=== PATIENT | male | born 1965 | race Caucasian/White ===

== ENCOUNTER 2016-08-04 08:18 | Inpatient (IN) | payer OTHER ==
[~2016-08-04] VITALS: Ht 172.7 cm; Wt 88.9 kg
[2016-08-04] VITALS (7 sets, daily range): BP systolic 114–149; BP diastolic 60–90
--- NOTE | ~2016-08-04 | ST ---
[place], [place] EXERCISE STRESS TEST REPORT NAME: BETY LEZAMA UNIT #: [id number] ROOM: 408 DOCTOR: IVAN REID MD BIRTHDATE: [birth year] DOS: 08/05/2016 EXERCISE STRESS TEST INDICATIONS: Chest discomfort, midsternal chest pain. PROCEDURE: The patient walked on a full Bety protocol for 5 minutes 20 seconds. At that point, he became very fatigued and dyspneic. The speed of the belt was decreased to 1.5 miles per hour and he walked an additional minute before the conclusion of the test. He achieved a maximum heart rate of 149, which represented 88% of his maximum predicted heart rate at a workload of 7 mets. He had dyspnea, but no chest discomfort. The resting and stress electrocardiograms were normal. One minute prior to completion of the exercise protocol, he was given radionuclide intravenously. Chapman treadmill score was 6 consistent with a low risk for cardiac events. IMPRESSION: 1. Somewhat limited exercise capacity, but without chest pain or diagnostic electrocardiographic changes. 2. Radionuclide administered. Please see the separate myocardial perfusion imaging report for further details of the patient's stress test results. IVAN REID MD CM:STRESS:EXERCISE STRESS TEST REPORT [id number] IVAN REID MD
--- NOTE | ~2016-08-04 | PR ---
[place], [place] PROGRESS NOTE NAME: BETY LEZAMA UNIT #: [id number] ROOM: 408 DOCTOR: IVAN REID MD BIRTHDATE: [birth year] DOS: CARDIOLOGY PROGRESS NOTE SUBJECTIVE: The patient was seen in the Cardiology Department just prior to a stress test today on 08/05/2016. He is a 50-year-old man, who has a history of a stroke in the past. This occurred in 09/2014. He presented to the hospital on this occasion with a sharp left precordial chest pain that occurred at rest and was very severe. The pain waxed and waned, but did not resolve spontaneously and therefore came to the emergency room. Since he has been in the hospital, he still does have some sensation of the pain. He did not have any diagnostic electrocardiographic changes or elevation in cardiac biomarkers. Overnight, his pains have persisted. They are not as serious as they were prior to admission. OBJECTIVE: VITAL SIGNS: On exam today, his pulse is 60 and regular, blood pressure 118/84. NECK: Supple. He has no jugular distention. His carotids are full without bruits. He has no neck or supraclavicular masses. LUNGS: Respirations are unlabored. His chest is clear to auscultation and percussion. He has no presacral edema or chest wall tenderness. HEART: Has a regular rhythm. He has a fourth heart sound, but no third heart sound. ABDOMEN: Soft. EXTREMITIES: Showed no edema. Her electrocardiogram today showed sinus rhythm and was a normal tracing. IMPRESSION: 1. Atypical chest pain, myocardial infarction has been ruled out. 2. History of stroke in 2014. Etiology never determined. 3. Long-term and ongoing cigarette abuse. 4. History of hypertension. PLAN: The patient will undergo an exercise myocardial perfusion study. Further recommendations will depend upon the results of the stress test. [place], [place] PROGRESS NOTE NAME: BETY LEZAMA UNIT #: [id number] ROOM: 408 DOCTOR: IVAN REID MD BIRTHDATE: [birth year] IVAN REID MD CM:PNTRANS [id number] IVAN REID MD 08/05/16 2320 interface
[~2016-08-04 08:18] MED LIST: AMOXICILLIN500 MG PO; ASPIRIN325 M2 PO; ATARAX,VISTARIL50 MG PO; ATARAX25 MG PO; BACTRIM DS 8001 TA1 PO; CEPHALEXIN500 M1 PO; DOXYCYCLINE HY100 M3 PO; KEFTAB500 MG PO; KENALOG0.1% TP; ZANTAC150 MG PO
[2016-08-04 08:44] LABS: BASO # 0.2 10*3/uL (0.0-0.1); BASO % 1.5 % (0.0-1.0); EOS # 0.4 10*3/uL (0.0-0.4); EOS % 3.2 % (1.0-4.0); HEMATOCRIT 46.5 % (42.0-52.0); LYMPH # 3.4 10*3/uL (1.3-4.4); LYMPH % 30.7 % (27.0-41.0); MEAN CELL VOLUME 90.8 fl (80.0-94.0); MEAN CORPUSCULAR HGB 31.3 pg (27.0-31.0); MEAN CORPUSCULAR HGB CONC 34.4 g/dl (33.0-37.0); MEAN PLATELET VOLUME 9.1 fl (9.6-12.3); MONO # 0.9 10*3/uL (0.1-1.0); MONO % 7.8 % (3.0-9.0); NEUT # 6.3 10*3/uL (2.3-7.9); NEUT % 56.6 % (47.0-73.0); PLATELET COUNT AUTOMATED 272 10*3/uL (130-400); RED BLOOD COUNT 5.12 10*6/uL (4.50-5.90); RED CELL DISTRI WIDTH 13.1 % (0-14.5); WHITE BLOOD COUNT 11.1 10*3/uL (4.8-10.8)
[2016-08-04 08:53] LABS: PROTHROMBIN TIME 10.4 SECONDS (9.0-12.4)
[2016-08-04 08:56] LABS: BUN 14 mg/dl (7-24); CARBON DIOXIDE 25 mmol/L (21-32); CHLORIDE 108 mmol/L (98-107); EST GLOM FILT AFRICAN AMERICAN > 60 ml/min; GLUCOSE 121 mg/dL (65-99); MAGNESIUM 2.3 mg/dL (1.5-2.1); POTASSIUM 4.1 mmol/L (3.5-5.1); SODIUM 140 mmol/L (136-145)
[2016-08-04 12:32] LABS: CKMB 1.2 ng/ml (0.5-3.6)
[2016-08-04 18:28] LABS: CKMB 0.6 ng/ml (0.5-3.6)
[2016-08-05] VITALS: BP 103/59
[2016-08-05 01:25] LABS: CPK 157 U/L (39-308)
[2016-08-05 01:26] LABS: CKMB < 0.5 ng/ml (0.5-3.6)
[2016-08-05 06:25] LABS: BASO # 0.2 10*3/uL (0.0-0.1); BASO % 1.7 % (0.0-1.0); EOS # 0.5 10*3/uL (0.0-0.4); EOS % 4.6 % (1.0-4.0); HEMATOCRIT 44.6 % (42.0-52.0); HEMOGLOBIN 15.3 g/dl (14.0-18.0); LYMPH # 3.2 10*3/uL (1.3-4.4); LYMPH % 32.4 % (27.0-41.0); MEAN CELL VOLUME 92.3 fl (80.0-94.0); MEAN CORPUSCULAR HGB 31.7 pg (27.0-31.0); MEAN CORPUSCULAR HGB CONC 34.3 g/dl (33.0-37.0); MEAN PLATELET VOLUME 9.7 fl (9.6-12.3); MONO % 10.4 % (3.0-9.0); NEUT % 50.6 % (47.0-73.0); PLATELET COUNT AUTOMATED 237 10*3/uL (130-400); RED BLOOD COUNT 4.83 10*6/uL (4.50-5.90); RED CELL DISTRI WIDTH 13.1 % (0-14.5)
[2016-08-05 06:45] LABS: HEMOGLOBIN A1c 5.1 % (4.8-5.6)
[2016-08-05 07:00] LABS: MAGNESIUM 2.3 mg/dL (1.5-2.1)
[2016-08-05 07:07] LABS: ALBUMIN 3.2 gm/dl (3.1-4.5); ALKALINE PHOSPHATASE 61 U/L (45-117); BILIRUBIN, TOTAL 0.2 mg/dl (0.2-1.0); BUN 15 mg/dl (7-24); CARBON DIOXIDE 25 mmol/L (21-32); CHLORIDE 107 mmol/L (98-107); EST GLOM FILT AFRICAN AMERICAN > 60 ml/min; GLUCOSE 107 mg/dL (65-99); POTASSIUM 4.1 mmol/L (3.5-5.1); SGOT/AST 19 IU/L (3-35); SGPT/ALT 27 U/L (12-78); SODIUM 139 mmol/L (136-145); TOTAL PROTEIN 7.4 gm/dL (6.4-8.2)
[2016-08-05 07:22] LABS: PROTHROMBIN TIME 10.2 SECONDS (9.0-12.4)
[2016-08-05 08:00] VITALS: BP 112/70
[2016-08-05 12:00] VITALS: BP 116/78
[2016-08-05 15:40] VITALS: BP 115/62
[2016-08-05] MEDS ORDERED: ASPIRIN ADULT L81 M2 PO (18:15)
[2016-08-05] MEDS ORDERED: ATORVASTATIN CA80 M1 PO (18:15)
== END 2016-08-05 18:46 | disposition home or self-care (01) | DRG 392 ==
LOC: ED 08:18 → EDHOLD 09:08 → 4E 10:02
PROVIDERS: Emergency Medicine; Family Medicine
DX: K21.9 Gastro-esophageal reflux disease without esophagitis (principal); E83.41 Hypermagnesemia; E87.8 Other disorders of electrolyte and fluid balance, not elsewhere classified; N18.3 Chronic kidney disease, stage 3 (moderate); F17.210 Nicotine dependence, cigarettes, uncomplicated; E66.9 Obesity, unspecified; D72.829 Elevated white blood cell count, unspecified; E03.9 Hypothyroidism, unspecified; I48.91 Unspecified atrial fibrillation; R26.81 Unsteadiness on feet; I12.9 Hypertensive chronic kidney disease with stage 1 through stage 4 chronic kidney disease, or unspecified chronic kidney disease; R73.9 Hyperglycemia, unspecified; F10.10 Alcohol abuse, uncomplicated; Z86.73 Personal history of transient ischemic attack (TIA), and cerebral infarction without residual deficits; Z82.5 Family history of asthma and other chronic lower respiratory diseases; Z82.49 Family history of ischemic heart disease and other diseases of the circulatory system; Z68.26 Body mass index [BMI] 26.0-26.9, adult

== ENCOUNTER 2017-03-30 09:53 | Inpatient (IN) | payer OTHER ==
[~2017-03-30] VITALS: Ht 172.7 cm; Wt 86.2 kg
--- NOTE | ~2017-03-30 | ST ---
[place], [place] EXERCISE STRESS TEST REPORT NAME: BETY LEZAMA UNIT #: [id number] ROOM: 530 DOCTOR: DAISY SZYMANSKI MD BIRTHDATE: [birth year] DOS: 03/31/2017 REFERRING PHYSICIAN: Dr. Claudio. INDICATION: Precordial chest pain. The patient underwent standard protocol Lexiscan stress EKG. The patient's baseline EKG showed normal sinus rhythm, nonspecific ST-T wave changes. The patient's baseline heart rate was 61 with a blood pressure 148/48. The patient's peak heart rate was 114 with a blood pressure of 206/78. The patient denied chest pain. The patient had no arrhythmias. The patient had no ischemic changes. SUMMARY OF FINDINGS: Unremarkable Lexiscan stress EKG. Please see separate report for perfusion scan imaging report. DAISY SZYMANSKI MD CM:STRESS:EXERCISE STRESS TEST REPORT [id number] DAISY SZYMANSKI MD
--- NOTE | ~2017-03-30 | CON ---
[place], [place] REPORT OF CONSULTATION NAME: BETY LEZAMA UNIT #: [id number] ROOM: 530 DOCTOR: IVAN REID MD BIRTHDATE: [birth year] DOS: 03/30/2017 REASON FOR CONSULTATION: Chest pain. HISTORY OF PRESENT ILLNESS: The patient is a 51-year-old man who has no previously documented history of coronary disease. He does have a history of chest pain. He was admitted to the hospital in August 2016 with chest pain and ruled out for myocardial infarction. Exercise myocardial perfusion study done at that time was unremarkable. Since then, he has had occasional chest discomfort. The current admission was prompted by a pain that awakened him from sleep at 3:30 in the morning. This was a band-like squeezing across the center of his chest, which was associated with some shortness of breath, but no nausea, vomiting or diaphoresis. The symptoms worsened and therefore, he came to the hospital where he was given aspirin and was admitted. Symptoms have subsequently resolved. He had no diagnostic electrocardiographic changes and cardiac troponin levels have been normal thus far. The patient's past history is positive for a stroke. The patient presented with weakness in his left arm in September 2014. The CT scan showed encephalomalacia of the right cerebellum, but no acute changes. The patient denied any previous history of head injury or injuries. PAST MEDICAL HISTORY: 1. History of stroke in 2014 and possibly previous to that with a right cerebellar encephalomalacia noted. 2. Hypertension, untreated. 3. Hyperlipidemia. 4. Obesity. 5. Chest pains, myocardial infarction is ruled out. MEDICATIONS: Prior to admission are none (the patient was prescribed atorvastatin and aspirin but did not take them). ALLERGIES: No known drug allergies. REVIEW OF SYSTEMS: NEUROLOGIC: The patient does have mild weakness in his hand. He does complain of a headache for the last week on the left side of his head. CARDIAC: The patient does have episodic lightheadedness, but no syncope. FAMILY HISTORY: The patient's mother had hypertension and COPD. The patient's father at age 50-60 from heart failure and obstructive lung disease. SOCIAL HISTORY: The patient is and lives with his . He smokes 2 packs of cigarettes a day. He does use alcohol and marijuana. PHYSICAL EXAMINATION: GENERAL: The patient is a well-nourished white male who is awake, alert and oriented. [place], [place] REPORT OF CONSULTATION NAME: BETY LEZAMA UNIT #: [id number] ROOM: [facility] DOCTOR: IVAN REID MD BIRTHDATE: [birth year] VITAL SIGNS: Pulse is 72 and regular, blood pressure 140/71. He is afebrile. HEENT: Normocephalic, atraumatic. Extraocular muscles are intact. Sclerae are clear. Pupils are equal, round and react to light. The oral mucosa is moist. Tongue is midline. NECK: Supple. He has no jugular distention. Carotids are full without bruits. He has no neck or supraclavicular masses. No thyromegaly. LUNGS: Respirations are unlabored. CHEST: Clear to auscultation and percussion. He has no presacral edema or chest wall tenderness. HEART: Has a regular rhythm. He has a fourth heart sound, but no third heart sound or murmur. The PMI is not displaced. He has no precordial heave, lift or thrill. ABDOMEN: Soft and normally active without masses, organomegaly or bruits. EXTREMITIES: Showed no edema. Peripheral pulses are palpable in the feet. IMAGING: I reviewed his electrocardiogram, which showed sinus rhythm and was a normal tracing. IMPRESSION: 1. Chest pain. The patient shows no objective evidence for myocardial infarction. 2. History of stroke with abnormal CAT scan demonstrating old cerebellar injury. 3. Medication noncompliance. 4. History of hypertension. 5. History of hyperlipidemia. 6. Long-term heavy cigarette use, which is ongoing. PLAN: The patient was strongly encouraged to quit smoking. I also told his that she needs to quit smoking. We will begin his current workup with an echocardiogram to look for structural heart disease. Even though he did have a stress test in August of this year, we will repeat the study now to look for signs of developing ischemia, especially since he is an ongoing heavy smoker. I will also request an MRI of the head to look for evidence for bilateral embolic events. If bilateral events are documented, then I would strongly recommend that the patient undergo transesophageal echocardiography to look for a cardiac or central vascular source of embolic strokes. For now, I agree with managing him with antiplatelet agents, antihypertensives, statins, etc. We will follow along with his other physicians during his workup. I thank the hospitalist physicians for asking our advice regarding his care. [place], [place] REPORT OF CONSULTATION NAME: BETY LEZAMA UNIT #: [id number] ROOM: [facility] DOCTOR: IVAN REID MD BIRTHDATE: [birth year] IVAN REID MD CM:CONSTR:REPORT OF CONSULTATION [id number] 03/31/17 1122 interface
[2017-03-30 09:53] VITALS: BP 156/84
[~2017-03-30 09:53] MED LIST changes: +ASPIRIN ADULT L81 M2 PO; +ATORVASTATIN CA80 M1 PO
[2017-03-30 10:06] LABS: BASO # 0.2 10*3/uL (0.0-0.1); BASO % 1.6 % (0.0-1.0); EOS # 0.3 10*3/uL (0.0-0.4); EOS % 2.2 % (1.0-4.0); HEMOGLOBIN 17.9 g/dl (14.0-18.0); LYMPH # 4.3 10*3/uL (1.3-4.4); LYMPH % 29.9 % (27.0-41.0); MEAN CELL VOLUME 91.5 fl (80.0-94.0); MEAN CORPUSCULAR HGB 31.5 pg (27.0-31.0); MEAN CORPUSCULAR HGB CONC 34.4 g/dl (33.0-37.0); MONO # 1.1 10*3/uL (0.1-1.0); MONO % 7.4 % (3.0-9.0); NEUT # 8.4 10*3/uL (2.3-7.9); NEUT % 58.6 % (47.0-73.0); PLATELET COUNT AUTOMATED 326 10*3/uL (130-400); RED BLOOD COUNT 5.68 10*6/uL (4.50-5.90); RED CELL DISTRI WIDTH 13.5 % (0-14.5); WHITE BLOOD COUNT 14.4 10*3/uL (4.8-10.8)
[2017-03-30 10:14] LABS: ACT PARTIAL THROMBO TIME 26.7 SECONDS (20.8-31.5)
[2017-03-30 10:27] LABS: ALBUMIN 3.8 gm/dl (3.1-4.5); ALKALINE PHOSPHATASE 77 U/L (45-117); BUN 14 mg/dl (7-24); CHLORIDE 107 mmol/L (98-107); CREATININE 0.95 mg/dL (0.70-1.30); MAGNESIUM 2.5 mg/dL (1.5-2.1); POTASSIUM 4.5 mmol/L (3.5-5.1); SGOT/AST 23 IU/L (3-35); SGPT/ALT 27 U/L (12-78); SODIUM 135 mmol/L (136-145); TOTAL PROTEIN 8.9 gm/dL (6.4-8.2)
[2017-03-30 10:32] LABS: TROPONIN I < 0.015 ng/ml (<0.045)
[2017-03-30 12:00] VITALS: BP 147/81
[2017-03-30 16:00] VITALS: BP 140/71
[2017-03-30 20:00] VITALS: BP 136/75
[2017-03-31] VITALS: BP 121/75
[2017-03-31 06:25] LABS: BASO # 0.2 10*3/uL (0.0-0.1); BASO % 1.6 % (0.0-1.0); EOS # 0.5 10*3/uL (0.0-0.4); EOS % 4.6 % (1.0-4.0); LYMPH # 3.4 10*3/uL (1.3-4.4); LYMPH % 32.7 % (27.0-41.0); MEAN CELL VOLUME 91.1 fl (80.0-94.0); MEAN CORPUSCULAR HGB 32.3 pg (27.0-31.0); MEAN CORPUSCULAR HGB CONC 35.4 g/dl (33.0-37.0); MEAN PLATELET VOLUME 9.5 fl (9.6-12.3); MONO # 0.9 10*3/uL (0.1-1.0); MONO % 8.6 % (3.0-9.0); NEUT # 5.4 10*3/uL (2.3-7.9); NEUT % 52.2 % (47.0-73.0); PLATELET COUNT AUTOMATED 246 10*3/uL (130-400); RED BLOOD COUNT 4.96 10*6/uL (4.50-5.90); RED CELL DISTRI WIDTH 13.5 % (0-14.5); WHITE BLOOD COUNT 10.3 10*3/uL (4.8-10.8)
[2017-03-31 06:32] LABS: HEMATOCRIT 45.2 % (42.0-52.0)
[2017-03-31 06:44] LABS: ALBUMIN 3.1 gm/dl (3.1-4.5); BUN 14 mg/dl (7-24); CHLORIDE 106 mmol/L (98-107); CHOLESTEROL 180 mg/dL (<200); CREATININE 0.71 mg/dL (0.70-1.30); MAGNESIUM 2.3 mg/dL (1.5-2.1); PHOSPHOROUS 2.3 mg/dL (2.5-4.9); SGOT/AST 16 IU/L (3-35); SGPT/ALT 23 U/L (12-78); SODIUM 137 mmol/L (136-145); TOTAL PROTEIN 7.5 gm/dL (6.4-8.2); TRIGLYCERIDES 106 mg/dl (<150); VLDL CHOLESTEROL 21 mg/dL (6-40)
[2017-03-31 06:49] LABS: ALKALINE PHOSPHATASE 62 U/L (45-117); FREE T4 0.94 ng/dl (0.76-1.46); HDL CHOLESTEROL 53 mg/dl (40-60); LDL CHOLESTEROL 106 mg/dL (9-159)
[2017-03-31 07:50] LABS: VITAMIN D, 25-HYDROXY 25.1 ng/mL (30-100)
[2017-03-31 08:00] VITALS: BP 137/80
[2017-03-31 16:00] VITALS: BP 116/89
[2017-03-31] MEDS ORDERED: LISINOPRIL5 MG PO (17:30)
[2017-03-31] MEDS ORDERED: ASPIRIN ADULT L81 M2 PO (17:30)
[2017-03-31] MEDS ORDERED: VITAMIN D31000 UNI1 PO (17:30)
[2017-03-31] MEDS ORDERED: ATORVASTATIN CA40 M1 PO (17:30)
== END 2017-03-31 18:34 | disposition home or self-care (01) | DRG 392 ==
LOC: ED 09:53 → 5E 10:45 → EDHOLD 10:45 → 5E 10:49
PROVIDERS: Emergency Medicine; Family Medicine; ADMIT Internal Medicine
DX: K21.9 Gastro-esophageal reflux disease without esophagitis (principal); E87.1 Hypo-osmolality and hyponatremia; I10 Essential (primary) hypertension; D72.829 Elevated white blood cell count, unspecified; E83.41 Hypermagnesemia; F17.210 Nicotine dependence, cigarettes, uncomplicated; R55 Syncope and collapse; F17.200 Nicotine dependence, unspecified, uncomplicated; R79.82 Elevated C-reactive protein (CRP); R73.9 Hyperglycemia, unspecified; Z86.73 Personal history of transient ischemic attack (TIA), and cerebral infarction without residual deficits; Z82.49 Family history of ischemic heart disease and other diseases of the circulatory system; Z71.6 Tobacco abuse counseling; Z82.5 Family history of asthma and other chronic lower respiratory diseases

== ENCOUNTER 2017-08-09 14:47 | Emergency (ER) | payer OTHER ==
[~2017-08-09] VITALS: Ht 172.7 cm; Wt 86.2 kg
[~2017-08-09 14:47] MED LIST changes: +ATORVASTATIN CA40 M1 PO; +LISINOPRIL5 MG PO; +VITAMIN D31000 UNI1 PO
[2017-08-09] MEDS ORDERED: CLARITIN10 MG PO (16:11)
[2017-08-09] MEDS ORDERED: FLONASE ALLERG9.9 ML NAS (16:11)
[2017-08-09] MEDS ORDERED: ROBITUSSIN DM 105 ML PO (16:11)
[2017-08-09] MEDS ORDERED: PREDNISONE10 MG PO (16:11)
== END 2017-08-09 17:02 | disposition home or self-care (01) ==
LOC: ED 14:47
DX: J20.9 Acute bronchitis, unspecified (principal); F17.200 Nicotine dependence, unspecified, uncomplicated; F12.10 Cannabis abuse, uncomplicated; I10 Essential (primary) hypertension; Z86.73 Personal history of transient ischemic attack (TIA), and cerebral infarction without residual deficits; Z79.899 Other long term (current) drug therapy; Z79.82 Long term (current) use of aspirin

== ENCOUNTER 2018-05-31 14:28 | Emergency (ER) | payer OTHER ==
[~2018-05-31] VITALS: Ht 172.7 cm; Wt 81.6 kg
[~2018-05-31 14:28] MED LIST changes: +CLARITIN10 MG PO; +FLONASE ALLERG9.9 ML NAS; +PREDNISONE10 MG PO; +ROBITUSSIN DM 105 ML PO
[2018-05-31 15:46] LABS: BASO # 0.2 10*3/uL (0.0-0.1); BASO % 1.9 % (0.0-1.0); EOS # 0.3 10*3/uL (0.0-0.4); EOS % 2.8 % (1.0-4.0); HEMATOCRIT 47.7 % (42.0-52.0); HEMOGLOBIN 16.7 g/dl (14.0-18.0); LYMPH # 3.1 10*3/uL (1.3-4.4); LYMPH % 29.1 % (27.0-41.0); MEAN CELL VOLUME 89.7 fl (80.0-94.0); MEAN CORPUSCULAR HGB 31.4 pg (27.0-31.0); MEAN PLATELET VOLUME 9.1 fl (9.6-12.3); MONO # 0.9 10*3/uL (0.1-1.0); MONO % 8.8 % (3.0-9.0); NEUT # 6.1 10*3/uL (2.3-7.9); NEUT % 57.2 % (47.0-73.0); PLATELET COUNT AUTOMATED 280 10*3/uL (130-400); RED BLOOD COUNT 5.32 10*6/uL (4.50-5.90); RED CELL DISTRI WIDTH 13.4 % (0-14.5); WHITE BLOOD COUNT 10.7 10*3/uL (4.8-10.8)
[2018-05-31 15:59] LABS: BUN 17 mg/dl (7-24); CHLORIDE 108 mmol/L (98-107); CREATININE 0.82 mg/dL (0.70-1.30); POTASSIUM 4.1 mmol/L (3.5-5.1); SODIUM 138 mmol/L (136-145)
== END 2018-05-31 16:02 | disposition home or self-care (01) ==
LOC: ED 14:28
PROVIDERS: Nurse Practitioner Family
DX: M79.661 Pain in right lower leg (principal); F17.200 Nicotine dependence, unspecified, uncomplicated; Z79.899 Other long term (current) drug therapy; Z86.73 Personal history of transient ischemic attack (TIA), and cerebral infarction without residual deficits

== ENCOUNTER 2018-08-03 08:42 | Inpatient (IN) | payer OTHER ==
[2018-08-03] VITALS (7 sets, daily range): BP systolic 126–151; BP diastolic 68–92
--- NOTE | ~2018-08-03 | EKG ---
[place], [place] ELECTROCARDIOGRAM REPORT NAME: BETY LEZAMA UNIT #: [id number] ROOM: 404 DOCTOR: JULIANN DRAFT REPORT BIRTHDATE: [birth year] [facility] Test Date: 2018-08-03 Test Time: 11:49:25 Pat Name: BETY LEZAMA Department: Room: 404 Gender: M Camera Repair Technician: Pam Amaya : 1965 Requested By: DONNIE NAVA Order Number: [id number] Reading MD: Saravanan Perez MD Measurements Intervals [place] Rate: 61 P: 23 ME: 166 QRS: 24 QRSD: 90 T: 28 QT: 382 QTc: 385 Interpretive Statements Sinus rhythm Abnormal R-wave progression, early transition Baseline wander in lead(s) V2 No change from earlier ECG this date Electronically Signed On 08-04-2018 18:08:42 PST by Saravanan Perez MD CM:EKGRPT:ELECTROCARDIOGRAM REPORT [id number] 1808 DONNIE JIMENEZ DRAFT REPORT DONNIE NAVA DO
--- NOTE | ~2018-08-03 | EKG ---
[place], [place] ELECTROCARDIOGRAM REPORT NAME: BETY LEZAMA UNIT #: [id number] ROOM: 404 DOCTOR: JULIANN DRAFT REPORT BIRTHDATE: [birth year] [place] Test Date: 2018-08-03 Test Time: 16:19:22 Pat Name: BETY LEZAMA Department: Room: 404 Gender: M It Coordinator: Pam Amaya : 1965 Requested By: DONNIE NAVA Order Number: [id number] Reading MD: Saravanan Perez MD Measurements Intervals [place] Rate: 64 P: -45 OK: 150 QRS: 39 QRSD: 90 T: 46 QT: 386 QTc: 399 Interpretive Statements Sinus or ectopic atrial rhythm Baseline wander in lead(s) V1,V2 No change from earlier ECG this date Electronically Signed On 08-04-2018 18:17:04 PST by Saravanan Perez MD CM:EKGRPT:ELECTROCARDIOGRAM REPORT [id number] DONNIE JIMENEZ DRAFT REPORT DONNIE NAVA DO
--- NOTE | ~2018-08-03 | EKG ---
[place], [place] ELECTROCARDIOGRAM REPORT NAME: BETY LEZAMA UNIT #: [id number] ROOM: 404 DOCTOR: JULIANN DRAFT REPORT BIRTHDATE: [birth year] [facility] Test Date: 2018-08-03 Test Time: 08:49:50 Pat Name: BETY LEZMAA Department: Room: 404 Gender: M Community Coordinator: Pam Amaya : 1965 Requested By: DONNIE NAVA Order Number: [id number] Reading MD: Saravanan Perez MD Measurements Intervals [place] Rate: 83 P: 24 MN: 155 QRS: 11 QRSD: 88 T: 37 QT: 341 QTc: 401 Interpretive Statements Sinus rhythm Electronically Signed On 08-04-2018 18:07:30 PST by Saravanan Perez MD CM:EKGRPT:ELECTROCARDIOGRAM REPORT [id number] [id number] DONNIE JIMENEZ DRAFT REPORT DONNIE NAVA DO
[2018-08-03 08:56] LABS: BASO # 0.2 10*3/uL (0.0-0.1); BASO % 1.3 % (0.0-1.0); EOS # 0.2 10*3/uL (0.0-0.4); EOS % 1.9 % (1.0-4.0); HEMATOCRIT 46.4 % (42.0-52.0); HEMOGLOBIN 16.4 g/dl (14.0-18.0); LYMPH # 3.5 10*3/uL (1.3-4.4); LYMPH % 29.6 % (27.0-41.0); MEAN CELL VOLUME 89.9 fl (80.0-94.0); MEAN CORPUSCULAR HGB 31.8 pg (27.0-31.0); MEAN CORPUSCULAR HGB CONC 35.3 g/dl (33.0-37.0); MEAN PLATELET VOLUME 8.8 fl (9.6-12.3); MONO # 1.1 10*3/uL (0.1-1.0); MONO % 9.3 % (3.0-9.0); NEUT # 6.7 10*3/uL (2.3-7.9); NEUT % 57.6 % (47.0-73.0); PLATELET COUNT AUTOMATED 290 10*3/uL (130-400); RED BLOOD COUNT 5.16 10*6/uL (4.50-5.90); RED CELL DISTRI WIDTH 13.5 % (0-14.5); WHITE BLOOD COUNT 11.7 10*3/uL (4.8-10.8)
[2018-08-03 09:05] LABS: ACT PARTIAL THROMBO TIME 24.6 SECONDS (20.8-31.5)
[2018-08-03 09:12] LABS: ALBUMIN 3.7 gm/dl (3.1-4.5); ALKALINE PHOSPHATASE 74 U/L (45-117); BUN 17 mg/dl (7-24); CHLORIDE 108 mmol/L (98-107); CREATININE 0.91 mg/dL (0.70-1.30); POTASSIUM 3.8 mmol/L (3.5-5.1); SGOT/AST 24 IU/L (3-35); SGPT/ALT 38 U/L (12-78); SODIUM 139 mmol/L (136-145); TOTAL PROTEIN 8.5 gm/dL (6.4-8.2)
[2018-08-03 09:16] LABS: TROPONIN I < 0.015 ng/ml (<0.045)
--- NOTE | 2018-08-03 09:44 | NUR ---
NOTIFIED NURSE TO TAKE PATIENT TO THE FLOOR. STATES TO WAIT FOR 10 MINUTES. WILL TAKE PATIENT UPSTAIRS THEN.
--- NOTE | 2018-08-03 09:55 | NUR ---
PATIENT DENIES ANY WOUNDS. A&OX4.
--- NOTE | 2018-08-03 10:00 | NUR ---
APPROACHED PATIENT TO TAKE PATIENT UP TO ADMITTED ROOM. PATIENT STATES THAT HE DOES NOT WANT TO STAY. STATES HE WANTS TO SIGN OUT AMA. PATIENT EXPLAINED THE RISKS OF LEAVING AMA. PATIENT DECIDED THAT HE WANTS TO STAY NOW. PATIENT TAKEN TO 4TH FLOOR.
--- NOTE | 2018-08-03 10:30 | NUR ---
A 52, admitted to 4E, under the services of LOLITA Ross DO with a diagnosis of CHEST PAIN. Chief complaint is UPPER CHEST PAIN. Patient arrived via wheel chair from ER. Monitor applied. Initial assessment completed. Vital signs taken and recorded. LOLITA ROSS DO notified of admission to the unit. Orders received. See assessment for past medical history, medications and allergies. Patient and/or family oriented to unit. [facility] visitation policy reviewed. Clothing/patient valuable form completed. KERVIN FINNEGAN
--- NOTE | 2018-08-03 11:45 | NUR ---
MESSAGE LEFT AT [facility] REGARDING NEW CONSULT. AWAITING CALL BACK.
--- NOTE | 2018-08-03 12:00 | NUR ---
JOZEF FROM [facility] INFORMED OF NEW CONSULT FOR DR REID.
--- NOTE | 2018-08-03 13:19 | NUR ---
PT RESTING COMFORTABLY, NO DISTRESS NOTED.
--- NOTE | 2018-08-03 16:00 | NUR ---
OFFERED PT NICOTINE PATCH AT THIS TIME, PT DENIES NEED FOR IT AT THIS TIME.
--- NOTE | 2018-08-03 23:00 | NUR ---
INTO SEE PT. PT HAS NO COMPLAINTS. WILL CONTINUE TO MONITOR
[2018-08-04] VITALS: BP 140/80
[2018-08-04 06:58] LABS: BASO # 0.2 10*3/uL (0.0-0.1); BASO % 1.5 % (0.0-1.0); EOS # 0.5 10*3/uL (0.0-0.4); HEMATOCRIT 46.8 % (42.0-52.0); HEMOGLOBIN 15.9 g/dl (14.0-18.0); LYMPH # 4.2 10*3/uL (1.3-4.4); LYMPH % 32.8 % (27.0-41.0); MEAN CELL VOLUME 91.4 fl (80.0-94.0); MEAN CORPUSCULAR HGB 31.1 pg (27.0-31.0); MEAN PLATELET VOLUME 9.5 fl (9.6-12.3); MONO # 1.3 10*3/uL (0.1-1.0); MONO % 9.8 % (3.0-9.0); NEUT # 6.7 10*3/uL (2.3-7.9); NEUT % 51.6 % (47.0-73.0); PLATELET COUNT AUTOMATED 254 10*3/uL (130-400); RED BLOOD COUNT 5.12 10*6/uL (4.50-5.90); RED CELL DISTRI WIDTH 13.4 % (0-14.5); WHITE BLOOD COUNT 12.9 10*3/uL (4.8-10.8)
[2018-08-04 07:20] LABS: CHLORIDE 109 mmol/L (98-107); POTASSIUM 4.1 mmol/L (3.5-5.1); SODIUM 139 mmol/L (136-145)
[2018-08-04 07:27] LABS: ALBUMIN 3.5 gm/dl (3.1-4.5); ALKALINE PHOSPHATASE 73 U/L (45-117); BUN 17 mg/dl (7-24); CHOLESTEROL 192 mg/dL (<200); CREATININE 0.85 mg/dL (0.70-1.30); FREE T4 0.89 ng/dl (0.76-1.46); HDL CHOLESTEROL 51 mg/dl (40-60); LDL CHOLESTEROL 113 mg/dL (9-159); PHOSPHOROUS 2.6 mg/dL (2.5-4.9); SGOT/AST 22 IU/L (3-35); SGPT/ALT 36 U/L (12-78); TOTAL PROTEIN 8.2 gm/dL (6.4-8.2); TRIGLYCERIDES 142 mg/dl (<150); VLDL CHOLESTEROL 28 mg/dL (6-40)
[2018-08-04 08:00] VITALS: BP 112/72
--- NOTE | 2018-08-04 08:28 | NUR ---
PT AMBULATORY OFF THE FLOOR, LEFT AMA. HEPLOCK REMOVED. MONITOR REMOVED.
--- NOTE | 2018-08-04 08:46 | NUR ---
DR. MCCAULEY ON THE FLOOR MADE AWARE PT LEAVING AMA. CARDIAC REHAB ON THE FLOOR TO INJECT PT HE STATES HE FEELS BETTER AND WAS LEAVING AMA.
[2018-08-04 09:00] LABS: VITAMIN D, 25-HYDROXY 20.5 ng/mL (30-100)
== END 2018-08-04 08:28 | disposition left against medical advice (07) | DRG 313 ==
LOC: ED 08:42 → EDHOLD 09:29 → 4E 09:29
PROVIDERS: Internal Medicine; Registered Nurse; ADMIT Emergency Medicine
DX: R07.89 Other chest pain (principal); E44.0 Moderate protein-calorie malnutrition; I10 Essential (primary) hypertension; E78.00 Pure hypercholesterolemia, unspecified; R73.9 Hyperglycemia, unspecified; Z53.21 Procedure and treatment not carried out due to patient leaving prior to being seen by health care provider; E87.8 Other disorders of electrolyte and fluid balance, not elsewhere classified; F17.210 Nicotine dependence, cigarettes, uncomplicated; D72.829 Elevated white blood cell count, unspecified; F12.10 Cannabis abuse, uncomplicated; E83.41 Hypermagnesemia; Z68.30 Body mass index [BMI] 30.0-30.9, adult; Z86.73 Personal history of transient ischemic attack (TIA), and cerebral infarction without residual deficits; Z82.5 Family history of asthma and other chronic lower respiratory diseases; Z82.49 Family history of ischemic heart disease and other diseases of the circulatory system; Z71.6 Tobacco abuse counseling; Z79.899 Other long term (current) drug therapy

== ENCOUNTER 2019-12-13 08:38 | Emergency (ER) | payer OTHER ==
[~2019-12-13] VITALS: Ht 172.7 cm; Wt 81.6 kg
[2019-12-13] MEDS ORDERED: NAPROSYN500 MG PO (09:20)
[2019-12-13] MEDS ORDERED: TYLENOL325 M1 PO (09:20)
[2019-12-13] MEDS ORDERED: PENICILLIN-VK500 MG PO (09:20)
== END 2019-12-13 09:23 | disposition home or self-care (01) ==
LOC: ED 08:38
DX: K04.7 Periapical abscess without sinus (principal); I10 Essential (primary) hypertension; F17.200 Nicotine dependence, unspecified, uncomplicated; Z86.73 Personal history of transient ischemic attack (TIA), and cerebral infarction without residual deficits

== ENCOUNTER 2021-01-29 08:48 | Emergency (ER) | payer BC ==
[~2021-01-29] VITALS: Ht 172.7 cm; Wt 90.7 kg
[~2021-01-29 08:48] MED LIST changes: +NAPROSYN500 MG PO; +PENICILLIN-VK500 MG PO; +TYLENOL325 M1 PO
[2021-01-29] MEDS ORDERED: PREDNISONE50 MG PO (11:10)
== END 2021-01-29 09:30 | disposition home or self-care (01) ==
LOC: ED 08:48
DX: S39.012A Strain of muscle, fascia and tendon of lower back, initial encounter (principal); Z79.899 Other long term (current) drug therapy; W22.8XXA Striking against or struck by other objects, initial encounter; Y93.89 Activity, other specified; Y92.89 Other specified places as the place of occurrence of the external cause; Y99.8 Other external cause status

== ENCOUNTER 2021-03-19 16:33 | Emergency (ER) | payer BC ==
[~2021-03-19] VITALS: Ht 172.7 cm; Wt 90.7 kg
[~2021-03-19 16:33] MED LIST changes: +PREDNISONE50 MG PO
== END 2021-03-19 18:20 | disposition left against medical advice (07) ==
LOC: ED 16:33
DX: S60.464A Insect bite (nonvenomous) of right ring finger, initial encounter (principal); S60.466A Insect bite (nonvenomous) of right little finger, initial encounter; Z53.21 Procedure and treatment not carried out due to patient leaving prior to being seen by health care provider; W57.XXXA Bitten or stung by nonvenomous insect and other nonvenomous arthropods, initial encounter; Y93.89 Activity, other specified; Y92.89 Other specified places as the place of occurrence of the external cause; Y99.8 Other external cause status

== ENCOUNTER → 2021-06-02 | Outpatient (CLI) | payer BC | END | disposition home or self-care (01) | LOC: COVID19 15:23 | PROVIDERS: ATTEND Internal Medicine | DX: Z11.52 Encounter for screening for COVID-19 (principal) ==

== ENCOUNTER 2021-10-15 11:47 | Emergency (ER) | payer BC ==
[~2021-10-15] VITALS: Wt 90.7 kg
[2021-10-15] MEDS ORDERED: IBUPROFEN600 MG PO (13:10)
== END 2021-10-15 15:00 | disposition home or self-care (01) ==
LOC: ED 11:47
DX: S43.402A Unspecified sprain of left shoulder joint, initial encounter (principal); X50.9XXA Other and unspecified overexertion or strenuous movements or postures, initial encounter; Y93.89 Activity, other specified; Y92.89 Other specified places as the place of occurrence of the external cause; Y99.8 Other external cause status

== ENCOUNTER → 2021-10-18 | Outpatient (CLI) | payer BC ==
[~2021-10-18] MED LIST changes: +IBUPROFEN600 MG PO
[2021-10-18 13:11] LABS: BASO # 0.2 10*3/uL (0.0-0.1); BASO % 1.6 % (0.0-1.0); EOS # 0.4 10*3/uL (0.0-0.4); EOS % 3.2 % (1.0-4.0); HEMATOCRIT 51.6 % (42.0-52.0); LYMPH # 3.4 10*3/uL (1.3-4.4); LYMPH % 27.8 % (27.0-41.0); MEAN CELL VOLUME 88.5 fl (80.0-94.0); MEAN CORPUSCULAR HGB CONC 35.1 g/dl (33.0-37.0); MEAN PLATELET VOLUME 8.6 fl (9.6-12.3); NEUT # 7.2 10*3/uL (2.3-7.9); NEUT % 59.1 % (47.0-73.0); PLATELET COUNT AUTOMATED 359 10*3/uL (130-400); RED BLOOD COUNT 5.83 10*6/uL (4.50-5.90); RED CELL DISTRI WIDTH 13.2 % (0-14.5); WHITE BLOOD COUNT 12.1 10*3/uL (4.8-10.8)
== END | disposition home or self-care (01) ==
LOC: LAB 12:53
PROVIDERS: ATTEND Orthopaedic Surgery
DX: M25.512 Pain in left shoulder (principal)

== ENCOUNTER → 2022-01-15 | Outpatient (CLI) | payer OTHER ==
[2022-01-15 08:54] LABS: BUN 17 mg/dl (7-24); CHLORIDE 107 mmol/L (98-107); POTASSIUM 4.2 mmol/L (3.5-5.1); SODIUM 135 mmol/L (136-145)
== END | disposition home or self-care (01) ==
LOC: LAB 08:26
PROVIDERS: ATTEND Physician Assistant
DX: S46.012A Strain of muscle(s) and tendon(s) of the rotator cuff of left shoulder, initial encounter (principal); Z01.818 Encounter for other preprocedural examination; X58.XXXA Exposure to other specified factors, initial encounter; Y93.89 Activity, other specified; Y92.89 Other specified places as the place of occurrence of the external cause; Y99.8 Other external cause status

== ENCOUNTER → 2022-07-29 | Outpatient (CLI) | payer OTHER | END | disposition home or self-care (01) | LOC: MRI 01:31 | PROVIDERS: ATTEND Orthopaedic Surgery | DX: S46.912A Strain of unspecified muscle, fascia and tendon at shoulder and upper arm level, left arm, initial encounter (principal); M75.112 Incomplete rotator cuff tear or rupture of left shoulder, not specified as traumatic; M19.012 Primary osteoarthritis, left shoulder; M25.812 Other specified joint disorders, left shoulder; X58.XXXA Exposure to other specified factors, initial encounter; Y93.89 Activity, other specified; Y92.89 Other specified places as the place of occurrence of the external cause; Y99.8 Other external cause status ==

== ENCOUNTER 2022-09-03 13:39 | Emergency (ER) | payer SELFPAY ==
[~2022-09-03] VITALS: Ht 172.7 cm; Wt 93.0 kg
[2022-09-03 15:28] LABS: BASO # 0.1 10*3/uL (0.0-0.1); BASO % 1.3 % (0.0-1.0); EOS # 0.2 10*3/uL (0.0-0.4); EOS % 1.9 % (1.0-4.0); HEMATOCRIT 48.9 % (42.0-52.0); LYMPH # 2.4 10*3/uL (1.3-4.4); LYMPH % 23.8 % (27.0-41.0); MEAN CELL VOLUME 91.7 fl (80.0-94.0); MEAN CORPUSCULAR HGB 31.9 pg (27.0-31.0); MEAN CORPUSCULAR HGB CONC 34.8 g/dl (33.0-37.0); MONO % 9.9 % (3.0-9.0); NEUT # 6.4 10*3/uL (2.3-7.9); NEUT % 62.7 % (47.0-73.0); PLATELET COUNT AUTOMATED 318 10*3/uL (130-400); RED BLOOD COUNT 5.33 10*6/uL (4.50-5.90); RED CELL DISTRI WIDTH 13.6 % (0-14.5); WHITE BLOOD COUNT 10.2 10*3/uL (4.8-10.8)
[2022-09-03 15:48] LABS: ALKALINE PHOSPHATASE 59 U/L (46-116); BUN 11 mg/dl (9-23); CHLORIDE 103 mmol/L (98-107); POTASSIUM 3.9 mmol/L (3.4-5.1); SGPT/ALT 45 U/L (10-49); TOTAL PROTEIN 8.1 gm/dL (6.0-8.0)
[2022-09-03 16:03] LABS: BILIRUBIN Negative (Negative); BLOOD Negative (Negative); CLARITY Clear (Clear); COLOR Yellow (Yellow); GLUCOSE Negative (Negative); KETONE Negative (Negative); LEUKO ESTERASE Negative (Negative); NITRITE Negative (Negative); PH 5.5 (4.5-8.0); SPECIFIC GRAVITY 1.015 (1.001-1.030); UROBILINOGEN 0.2 E.U./dl (0.0-1.0)
[2022-09-03 17:17] LABS: RBC 0-2 rbc/hpf (0-2); WBC 0-2 wbc/hpf (0-5)
== END 2022-09-03 17:57 | disposition home or self-care (01) ==
LOC: ED 13:39
PROVIDERS: Internal Medicine; Physician Assistant
DX: R03.0 Elevated blood-pressure reading, without diagnosis of hypertension (principal); R42 Dizziness and giddiness; R51.9 Headache, unspecified; Z87.891 Personal history of nicotine dependence

== ENCOUNTER → 2022-09-21 | Outpatient (CLI) | payer OTHER ==
[2022-09-21 12:27] LABS: BUN 11 mg/dl (9-23); CHLORIDE 103 mmol/L (98-107); POTASSIUM 4.3 mmol/L (3.4-5.1)
== END | disposition home or self-care (01) ==
LOC: LAB 11:45
PROVIDERS: ATTEND Orthopaedic Surgery
DX: Z01.818 Encounter for other preprocedural examination (principal); M75.102 Unspecified rotator cuff tear or rupture of left shoulder, not specified as traumatic